=== PATIENT | female | born 1970 | race African-American/Black ===

== ENCOUNTER → 2019-02-11 | Outpatient (CLI) | payer BC | END | disposition home or self-care (01) | LOC: U/S 08:07 | DX: R10.9 Unspecified abdominal pain (principal); R11.0 Nausea; E66.01 Morbid (severe) obesity due to excess calories; R06.00 Dyspnea, unspecified | CPT/HCPCS: 36600; 76700; 82803; 93306; 94010; 94726; 94729 ==